=== PATIENT | female | born 1990 | race Caucasian/White ===

== ENCOUNTER 2016-12-13 09:39 | Emergency (ER) | payer OTHER ==
[~2016-12-13] VITALS: Ht 160 cm; Wt 90.7 kg
--- NOTE | 2016-12-13 10:06 | ED AMS/SEIZURE/WEAK/DIZZY ---
History of Present Illness General Chief Complaint: General Adult Stated Complaint: WEAK LEGS, CHILLS Source: patient Exam Limitations: no limitations Vital Signs & Intake/Output Vital Signs & Intake/Output Vital Signs Date Time Temp Pulse Resp B/P Pulse O2 O2 Flow FiO2 Ox Delivery Rate 12/13 1620 98.3 79 15 124/74 100 Room Air 12/13 1523 97.4 75 18 127/78 100 Room Air 12/13 1218 98.0 92 28 134/71 100 Room Air 12/13 1128 97.0 89 20 132/70 95 Room Air 12/13 1125 Room Air Room Air ED Intake and Output 12/14 0000 12/13 1200 Intake Total 0 Output Total Balance 0 Intake, Oral 0 Patient 200 lb Weight Allergies Coded Allergies: No Known Allergies (12/13/16) Reconcile Medications Ferrous Sulfate (IRON) 325 MG (65 MG IRON) TABLET 1 TAB PO BID SUPPLEMENT ( Reported) Sertraline HCl (Zoloft) (Unknown Strength) TABLET (Unknown Dose) PO DAILY MENTAL HEALTH (Reported) Triage Note: 26 STATES FOR 4 DAYS, PT HAS BEEN FEELING WEAK, LIGHTHEADED, AND "HOT FLASHES". HAS A MISCARRIAGE 2 MONTHS AGO AND CONTINUES TO "FEEL WEIRD DOWN THERE". DENIES VAGINAL BLEEDING BUT STATES SHE HAS NOTICED YELLOW DISCHARGE. PT REPORTS HX ANEMIA AND STATES HER LAST COUNT WAS "12". DENIES EVER NEEDING BLOOD TRANSFUSIONS FOR SAME. PT OFFERED W/C HOWEVER STATES "IT WILL GIVE ME A PANIC ATTACK". AMBULATES WITH STEADY GAIT. Triage Nurses Notes Reviewed? yes Onset: Gradual Duration: 2 MONTHS Timing: recent history Injury Environment: home Severity: severe No Modifying Factors: none Associated Symptoms: anxiety, weakness : No Patient currently breastfeeds: No HPI: 26 year old female who presents with weakness in legs, weird feeling in her lower abdomen and loss of appetite for past 2 months. Patient had miscarriage 2 months ago which was treated with medications. Patient admits to possible . She reports 2 ER visits in the last 1 week for same symptoms. She has a 2 year old daughter at home. Feels increasing anxiety over the past few months. Her PCP gave her an Rx for zoloft 4 days ago but states she has not been able to take it because she is too anxious. Past History Travel History Traveled to [place] past 21 day No Medical History Any Pertinent Medical History? see below for history Neurological: NONE EENT: NONE Cardiovascular: NONE Respiratory: NONE Gastrointestinal: NONE Hepatic: NONE Renal: NONE Musculoskeletal: NONE Psychiatric: anxiety Endocrine: NONE Blood Disorders: NONE Cancer(s): NONE INJECTION PRESS OPERATOR/Reproductive: NONE Surgical History Surgical History: non-contributory Psychosocial History What is your primary language Tajik Tobacco Use: Quit >30 days ago Family History Hx Contributory? No Review of Systems Review of Systems Constitutional: Reports: weakness. Denies: chills, fever. EENTM: Reports: no symptoms. Respiratory: Denies: cough, short of breath. Cardiovascular: Denies: chest pain. GI: Reports: abdominal pain (? cramping). Genitourinary: Reports: no symptoms. Musculoskeletal: Reports: no symptoms. Skin: Reports: no symptoms. Neurological/Psychological: Reports: see HPI (paresthesias, hot flashes), anxiety. Hematologic/Endocrine: Denies: bruising, bleeding, polyuria, polydipsia. Immunologic/Allergic: Reports: no symptoms. All Other Systems: Reviewed and Negative Physical Exam Physical Exam General Appearance: well developed/nourished, alert, awake, anxious, moderate distress, obese Head: atraumatic, normal appearance Eyes: Bilateral: normal appearance, PERRL, EOMI. Ears, Nose, Throat: normal pharynx, normal ENT inspection, hearing grossly normal Neck: normal inspection, supple, full range of motion Respiratory: normal breath sounds, chest non-tender, no respiratory distress Cardiovascular: regular rate/rhythm Peripheral Pulses: 2+ radial (R), 2+ radial (L) Gastrointestinal: normal bowel sounds, soft, non-tender Extremities: normal range of motion Neurologic/Psych: no motor/sensory deficits, awake, alert, oriented x 3 Skin: intact, normal color, warm/dry Core Measures ACS in differential dx? No CVA/TIA Diagnosis: No Severe Sepsis Present: No Septic Shock Present: No Progress Differential Diagnosis: anemia, ANXIETY, ACUTE BLOOD LOSS, IRON DEFICIENCY ANEMIA, PTSD Plan of Care: Orders Procedure Date/time Status Regular Diet 12/13 D Active Add-on Test (ER Only) 12/13 1610 Active THYROID STIMULATING HORMONE 12/13 1043 Complete Laboratory Tests 12/13/16 1122: Urine Opiates Screen < 100.00, Methadone Screen < 40, Barbiturate Screen < 60, Ur Phencyclidine Scrn < 6.00, Amphetamines Screen < 100, U Benzodiazepines Scrn < 85, Urine Cocaine Screen < 50, Urine Cannabis Screen < 5.00, Urine Color YEL, Urine Clarity HAZY H, Urine pH 6.0, Ur Specific [place] 1.020, Urine Protein NEG, Urine Ketones NEG, Urine Nitrite NEG, Urine Bilirubin NEG, Urine Urobilinogen 1.0, Ur Leukocyte Esterase SMALL H, Ur Microscopic SEDIMENT EXAMINED, Urine RBC 1-3, Urine WBC 3-5 H, Ur Epithelial Cells FEW, Urine Bacteria FEW H, Urine Hemoglobin NEG, Urine Glucose NEG 12 PM Labs show anemia. Pending crisis evaluation. 2:18 PM CRISIS CONSULT PENDING. 12/13/2016 2:56:38 PM Patient became exceedingly anxious and worried that she had internal bleeding. She states that her hemoglobin in the office last week was 12. We call the office to verify her blood work from last week which was a hemoglobin of 7.9. Patient informed that her hemoglobin is 1.0 by plastics hemoglobin. She states that she still doesn't feel well. Crisis pending at this time. 4:15 PM CLEARED BY PSYCH AT THIS TIME FOR D/C HOME. DOES NOT WANT TO WAIT FOR TSH. NO SI/HI. WANTS TO FOLLOW UP WITH [facility]. (DRE MARADIAGA,HOLLEY) Initial ED EKG: none Departure Departure Time of Disposition: 1613 Disposition: HOME OR SELF CARE Condition: Stable Clinical Impression Primary Impression: Anxiety Secondary Impressions: Anemia Referrals: GAYATHRI WALLER (PCP/Family) Additional Instructions: FOLLOW UP WITH YOUR PRIMARY CARE DOCTOR. FOLLOW UP WITH [facility]. Departure Forms: Customer Survey General Discharge Information
[2016-12-13 10:51] LABS: ABSOLUTE BASOPHIL COUNT 0 /CUMM (0.0-0.2); ABSOLUTE EOSINOPHIL COUNT 0.2 /CUMM (0.0-0.7); ABSOLUTE GRANULOCYTE CT 7.8 /CUMM (1.4-6.5); ABSOLUTE LYMPH COUNT 1.6 /CUMM (1.2-3.4); ABSOLUTE MONOCYTE COUNT 0.4 /CUMM (0.10-0.60); BASOPHIL % 0.1 % (0.0-2.0); EOSINOPHIL % 2.4 % (0-5); GRANULOCYTE % 77.6 % (42.2-75.2); HEMATOCRIT 27.4 % (37-47); MEAN CORPUSCULAR HGB 20.1 PG (27.0-31.0); MEAN CORPUSCULAR HGB CONC 30.7 G/DL (33.0-37.0); MEAN CORPUSCULAR VOLUME 65.5 FL (81.0-99.0); MEAN PLATELET VOLUME 7.9 FL (7.4-10.4); PLATELET COUNT 379 /CUMM (130-400); RBC DISTRIBUTION WIDTH 23.9 % (11.5-14.5); RED BLOOD CELL CT 4.18 /CUMM (4.20-5.40); WHITE BLOOD CELL COUNT 10.1 /CUMM (4.8-10.8)
[2016-12-13] MEDS ORDERED: IRON325 M3 PO (13:39)
[2016-12-13] MEDS ORDERED: ZOLOFT25 M1 PO (13:39)
--- NOTE | 2016-12-13 16:06 | ED PSYCH CRISIS CONSULTATION ---
Crisis Consult Basic Assessment Date of Consult: 12/13/16 Responsible Person/Accompanied By: self Insurance Authorization: Insurance #1: Insurance name: UMESH Chavarria C&A Phone number: Policy number: [id number] Group number: Authorization number: ED Provider: Patient's ED Provider: HOLLEY LINARES MD Primary Care Physician: Patient's PCP: DAYANA ROSE PCP's Chief Complaint: General Adult Patient's Quote: " I want to feel better." Present Illness: Pt is 26 yo female exhibiting symtpoms of anxiety. Pt brought her self to the hospital thinking she was medically unstable. She said for the past week she is having hot flashes, feeling tired and faint. Her UTOX was negative for substances. The doctor notes her blood work came back that she is anemic. She denies SI/HI/AVH at current and says she has no hx. Pt said she is absolutely scared of and is not suicidal. Pt reports 2 months ago she had a miscarriage (11 weeks ) which she lost alot of blood. She said one month after that she noted an increase of anxiety and sadness. She has a 2 yo daughter and is living with her parents. Pt has hx dx of OCD and anxiety in high school and attended OP groups at [facility] at age 17. Pt sees her PCP Dr. Dayana Rose for medication management and she said she stopped taking her zoloft as prescribed. She works at the [employer] at the [employer]. She would like to feel better immediately. Pt said she was not open to IOP or group tx but would like individual counseling in the [place] area as she lives in [place]. Stanford ( mom) [phone]: Mom reported pt has been suffereing from anxiety. She noted since the the miscarriage she was struggling. Mom said she has a strong support system from both her parents and her boyfriend's family. She has no immediate concerns for pt's health and safety. Stanford feels the pt needs individual counseling. Patient's Address: [address] [place] [address] Other Phone Number: Who Do You Live With? Mother Family/Informants Interviewed: Stanford- Mother Allergies - Coded Allergies: No Known Allergies (12/13/16) Current Medications - Scheduled Medications Ferrous Sulfate (IRON) 325 MG (65 MG IRON) TABLET 1 TAB PO BID SUPPLEMENT ( Reported) Entered as Reported by ALEXUS JONAS on 12/13/16 1339 Sertraline HCl (Zoloft) (Unknown Strength) TABLET (Unknown Dose) PO DAILY MENTAL HEALTH (Reported) Entered as Reported by ALEXUS JONAS on 12/13/16 1339 Laboratory Results: Laboratory Tests 12/13/16 1122: Urine Opiates Screen < 100.00, Methadone Screen < 40, Barbiturate Screen < 60, Ur Phencyclidine Scrn < 6.00, Amphetamines Screen < 100, U Benzodiazepines Scrn < 85, Urine Cocaine Screen < 50, Urine Cannabis Screen < 5.00, Urine Color YEL, Urine Clarity HAZY H, Urine pH 6.0, Ur Specific [place] 1.020, Urine Protein NEG, Urine Ketones NEG, Urine Nitrite NEG, Urine Bilirubin NEG, Urine Urobilinogen 1.0, Ur Leukocyte Esterase SMALL H, Ur Microscopic SEDIMENT EXAMINED, Urine RBC 1-3, Urine WBC 3-5 H, Ur Epithelial Cells FEW, Urine Bacteria FEW H, Urine Hemoglobin NEG, Urine Glucose NEG 12/13/16 1043: Anion Gap 11, Estimated GFR > 60, BUN/Creatinine Ratio 18.6, Glucose 99, Calcium 10.2, Total Bilirubin 0.7, AST 21, ALT 41, Alkaline Phosphatase 109, Total Protein 8.6 H, Albumin 4.8, Globulin 3.8, Albumin/Globulin Ratio 1.3, Total Beta HCG NEGATIVE, CBC w Diff MAN DIFF ORDERED, RBC 4.18 L, MCV 65.5 L, MCH 20.1 L, RDW 23.9 H, MPV 7.9, Gran % 77.6 H, Lymphocytes % 15.5 L, Monocytes % 4.4, Eosinophils % 2.4, Basophils % 0.1, Absolute Granulocytes 7.8 H, Absolute Lymphocytes 1.6, Absolute Monocytes 0.4, Absolute Eosinophils 0.2, Absolute Basophils 0, Platelet Estimate ADEQUATE, Hypochromic-Microcytic 3+, Poikilocytosis 1+, Anisocytosis 2+, Microcytic Cells 2+, PUBS MCHC 30.7 L Past History Past Medical History Neurological: NONE EENT: NONE Cardiovascular: NONE Respiratory: NONE Gastrointestinal: NONE Hepatic: NONE Renal: NONE Musculoskeletal: NONE Psychiatric: anxiety Endocrine: NONE Blood Disorders: NONE Cancer(s): NONE PHOTOGRAPHIC PROCESSOR/Reproductive: NONE Psychosocial History Strengths/Capabilities: Pt is currently employed, takes care of her 2 yo daughter and lives at home with her mom and step dad. Physical Limitations (Interventions): No Psychiatric Treatment History Psych Treatment Psychiatric Treatment Yes Inpatient Treatment No Outpatient Treatment Yes Location of Treatment [facility] Reason for Treatment anxiety Dates of Treatment high school Response to Treatment fair Diagnosis by History: Anxiety Substance Use/Abuse History Drug Use/Abuse Substances Used/Abused No Substance Abuse Treatment Substance Abuse Treatment Past Substance Abuse [place] No Comments: Pt has no history of abusing substances or inpatient hospitalizations. Current Mental Status Mental Status Orientation: Person, Place, Situation Affect: Anxious, Sad Speech: WNL Neuro-vegetative: Energy Decreased Appearance Appearance- Dress/Hygiene: Pt is casually dressed and well groomed Behaviors Thought Process: WNL Thought Content: WNL Memory: WNL Insight: WNL SI/HI Risk Assessment Past Suicidal Ideation/Attempts No Current Suicidal Ideation/Att No Past Homicidal Ideation/Att: No Current Homicidal Ideation/Attempts No Degree of Intent: None Risk Factors: high anxiety/distress Lethality Ratin (mild) PTSD Checklist PTSD Done? pt unable to participate ED Management Sitter: No Restraints: No DSM5/PS Stressors/Medical Prob Diagnosis' (DSM 5, Stressors, Medical): F41.1 Anxiety DO; F32.9 Unspecified depression medical: anemia due to miscarriage 2 months ago Current GAF: 48 Departure Disposition Psych Medical Clearance Date: 12/13/16 Medically Cleared at: 1023 Time Started: 1500 Time Ended: 1600 Psychiatrist Consulted: Austin Manning MD Date Disposition Established: 12/13/16 Time Disposition Established: 1600 Plan for Disposition - Modality: Outpatient Facility: [facility] Contact: [facility] Rationale for Disposition: Pt denies SI/HI/AVH, and has no hx of suicide attempts in the past. Pt said she was reassured she was medically stable and is eager to get home to her daughter. Pt was given referall information for OP [facility] and she was agreeable to follow up. Dr. Linares ordered TSH and Thyroid test per Dr. Manning's recommendation. Pt refused to stay for test results as she stated she just had one a few days ago at another hospital and needs to get back home to her daughter. Additional Instructions: Pt is agreeable to go to nearest ED or call 211 if she feels unsafe. Referrals DAYANA ROSE (PCP/Family)
[2016-12-13 16:20] VITALS: BP 124/74
== END 2016-12-13 16:21 ==
LOC: ERH 09:39
PROVIDERS: Emergency Medicine
DX: F41.9 Anxiety disorder, unspecified (principal); D64.9 Anemia, unspecified
CPT/HCPCS: 80307; 81001; G0463